=== PATIENT | female | born 1975 | race Hispanic/Latino ===

== ENCOUNTER 2019-03-02 14:25 | Emergency (ER) | payer SELFPAY ==
[2019-03-02 16:05] LABS: Absolute Lymphocytes (CBC) 0.8 K/uL (0.7-4.9); Absolute Monocytes 0.3 K/uL (0.1-1.3); Absolute Neutrophil 7.9 K/uL (1.8-8.0); Basophils % 0.7 % (0-1.3); Eosinophils % 1.1 % (0-4.4); Hematocrit 39.7 % (36.0-45.0); Lymphocytes % 8.7 % (15.3-44.8); MPV 9.3 fL (7.6-11.3); Monocytes % 3.1 % (3.3-12.3)
[2019-03-02 16:14] LABS: Urine Blood 1+ (NEG); Urine Glucose NEGATIVE (NEG); Urine Protein 1+ (NEG)
[2019-03-02] MEDS ORDERED: NA CHLORIDE 0.9% 1,000 ML ONE (16:15)
[2019-03-02 16:58] LABS: ALT/SGPT 21 U/L (12-78); AST/SGOT 18 U/L (15-37); Albumin 3.4 g/dL (3.4-5.0); Alkaline Phosphatase 94 U/L (45-117); BUN Blood Urea Nitrogen 13 mg/dL (7-18); Bicarbonate 26 mmol/L (21-32); Bilirubin Direct < 0.1 mg/dL (0-0.2); Bilirubin Total 0.4 mg/dL (0.2-1.0); Glucose Level 92 mg/dL (74-106); Lipase 60 U/L (73-393); Potassium 4.1 mmol/L (3.5-5.1); Protein, Total 8.5 g/dL (6.4-8.2); Sodium Level 141 mmol/L (136-145); Troponin (Emerg Dept Use Only) < 0.02 ng/mL (0.0-0.045)
[2019-03-02] MEDS ORDERED: KETOROLAC 30 MG/ML INJ ONE (17:10)
--- NOTE | 2019-03-02 18:43 | RAD REPORT ---
EXAM DESCRIPTION: CT - Abdomen Pelvis W Contrast - 03/02/2019 6:24 pm CLINICAL HISTORY: Abdominal pain. Right upper quadrant pain COMPARISON: 2016 TECHNIQUE: Computed axial tomography of the abdomen and pelvis was obtained. 100 cc Isovue-300 is ad ministered intravenously. Oral contrast was given. All CT scans are performed using dose optimization technique as appropriate and may include automated exposure control or mA/KV adjustment according to patient size. FINDINGS: The liver, spleen, pancreas, adrenals and kidneys appear unremarkable. The appendix is normal caliber. There is no evidence of diverticulitis Small umbilical hernia IMPRESSION: No acute abnormality displayed
--- NOTE | 2019-03-02 18:44 | RAD REPORT ---
EXAM DESCRIPTION: Kimberly Colunga (2 Views)03/02/2019 4:13 pm CLINICAL HISTORY: sob COMPARISON: 2009 FINDINGS: The lungs appear clear of acute infiltrate. The heart is normal size IMPRESSION: No acute abnormalities displayed
--- NOTE | 2019-03-02 19:08 | ER ---
Nurse's Notes [facility] Name: Nichole Martinez Age: 43 yrs Sex: Female : 1975 Arrival Date: 03/02/2019 Time: 14:29 Bed 27 Private MD: Diagnosis: Unspecified abdominal pain Presentation: 03/02 14:59 Presenting complaint: Patient states: SOB, dizzy, general weakness, RUQ pain that began aa5 yesterday. Transition of care: patient was not received from another setting of care. Onset of symptoms was February 2019. Risk Assessment: Do you want to hurt yourself or someone else? Patient reports no desire to harm self or others. Initial Sepsis Screen: Does the patient meet any 2 criteria? No. Patient's initial sepsis screen is negative. Does the patient have a suspected source of infection? No. Patient's initial sepsis screen is negative. Care prior to arrival: None. 14:59 Method Of Arrival: Ambulatory aa5 14:59 Acuity: CECELIA 3 aa5 Triage Assessment: 16:12 General: Appears in no apparent distress. comfortable, Behavior is calm, cooperative. rv Respiratory: Reports shortness of breath Onset: The symptoms/episode began/occurred gradually, the patient has mild shortness of breath. 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 - Social history:: Smoking status: Patient/guardian denies using tobacco. - Ebola Screening: : No symptoms or risks identified at this time. Screenin:12 Abuse screen: Denies threats or abuse. Denies injuries from another. Nutritional rv screening: No deficits noted. Tuberculosis screening: No symptoms or risk factors identified. Fall Risk None identified. Assessment: 16:11 General: Appears in no apparent distress. comfortable, Behavior is calm, cooperative. rv Pain: Complains of pain in abdomen. Neuro: Level of Consciousness is awake, alert, obeys commands, Oriented to person, place, time, situation. Cardiovascular: Patient's skin is warm and dry. Rhythm is regular. Respiratory: Airway is patent Respiratory effort is even, Breath sounds are clear bilaterally. GI: No signs and/or symptoms were reported involving the gastrointestinal system. : No signs and/or symptoms were reported regarding the genitourinary system. EENT: No signs and/or symptoms were reported regarding the EENT system. Derm: Skin is intact. Musculoskeletal: No signs and/or symptoms reported regarding the musculoskeletal system. 16:18 Reassessment: patient drink the oral contrast at 1615. rv 19:00 Reassessment: Patient appears in no apparent distress at this time. Patient and/or rv family updated on plan of care and expected duration. Pain level reassessed. Patient is alert, oriented x 3, equal unlabored respirations, skin warm/dry/pink. patient feels better. does not complain of any pain. conferred with SALMA Mccormick regarding plan of care. awaiting disposition. Patient denies pain at this time. Patient states feeling better. Patient states symptoms have improved. Vital Signs: 15:02 BP 137 / 83; Pulse 90; Resp 18 S; Temp 98.4(O); Pulse Ox 98% on R/A; Weight 136.08 kg aa5 (R); Height 5 ft. 4 in. (162.56 cm) (R); Pain 8/10; 16:19 BP 134 / 81; Pulse 91; Resp 16; Pulse Ox 100% ; rv 17:00 BP 134 / 99; Pulse 91; Resp 17; Temp 98; Pulse Ox 98% ; rv 18:00 BP 129 / 83; Pulse 75; Resp 17; Pulse Ox 97% ; rv 19:00 BP 138 / 95; Pulse 74; Resp 15; Pulse Ox 99% ; rv 15:02 Body Mass Index 51.49 (136.08 kg, 162.56 cm) aa5 ED Course: 14:29 Patient arrived in ED. mr 15:02 Triage completed. aa5 15:02 Arm band placed on. aa5 15:43 Jace Oswald NP is PHCP. pm1 15:43 Branden Wagoner MD is Attending Physician. pm1 15:57 Inserted saline lock: 20 gauge in right antecubital area, using aseptic technique. rv Blood collected. 16:10 Krunal Fernandez RN is Primary Nurse. rv 16:12 Patient has correct armband on for positive identification. Bed in low position. Call rv light in reach. Side rails up X 1. Pulse ox on. NIBP on. 16:17 Chest Pa And Lat (2 Views) XRAY In Process Unspecified. EDMS 18:[address] via wheelchair. tn 18:25 CT Abd/Pelvis - PO and IV Contrast In Process Unspecified. EDMS 19:19 No provider procedures requiring assistance completed. IV discontinued, intact, rv bleeding controlled, No redness/swelling at site. Pressure dressing applied. Administered Medications: 16:18 Drug: NS 0.9% 1000 ml Route: IV; Rate: 1000 ml; Site: right antecubital; rv 17:04 Follow up: IV Status: Completed infusion rv 19:00 Follow up: IV Intake: 1000ml rv 17:00 Drug: TORadol 30 mg Route: IVP; Site: right antecubital; rv 19:00 Follow up: Response: Marked relief of symptoms; Pain is decreased rv Intake: 19:00 IV: 1000ml; Total: 1000ml. rv Outcome: 19:09 Discharge ordered by MD. pm1 19:19 Discharged to home ambulatory. rv 19:19 Condition: improved 19:19 Discharge instructions given to patient, Instructed on discharge instructions, follow up and referral plans. medication usage, Demonstrated understanding of instructions, follow-up care, medications, Prescriptions given X 1. 19:23 Patient left the ED. rv Signatures: Dispatcher [employer] EDUT aZki Denisha PaniaguaRosalva RN RN aa5 Jace Oswald, SHAG TRUCK DRIVER SHAG TRUCK DRIVER pm1 Tushar Lorenzo Ronaldo, RN RN rv Corrections: (The following items were deleted from the chart) 15:03 15:02 BP 137 / 83; Pulse 90bpm; Resp 18bpm; Spontaneous; Pulse Ox 98% RA; Temp 98.4F aa5 Oral; aa5
--- NOTE | 2019-03-02 19:09 | EDPHYS ---
Physician Documentation [facility] Name: Nichole Martinez Age: 43 yrs Sex: Female : 1975 Arrival Date: 03/02/2019 Time: 14:29 Bed 27 Private MD: ED Physician Branden Wagoner HPI: 03/02 15:58 This 43 yrs old Female presents to ER via Ambulatory with complaints of pm1 Shortness Of Breath, Abdominal Pain, Back Pain. 15:58 The patient presents with abdominal pain in the right upper quadrant. Onset: The pm1 symptoms/episode began/occurred yesterday. The symptoms radiate to the right flank. Associated signs and symptoms: Pertinent positives: diarrhea, nausea, shortness of breath, Pertinent negatives: chest pain, constipation, dysuria, fever, vomiting. The symptoms are described as sharp. Modifying factors: The symptoms are alleviated by nothing, the symptoms are aggravated by nothing. Severity of pain: in the emergency department the pain is actually worse. The patient has not experienced similar symptoms in the past. The patient has not recently seen a physician. 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 - Social history:: Smoking status: Patient/guardian denies using tobacco. - Ebola Screening: : No symptoms or risks identified at this time. ROS: 15:58 Constitutional: Negative for fever, chills, and weight loss, Eyes: Negative for injury, pm1 pain, redness, and discharge, ENT: Negative for injury, pain, and discharge, Neck: Negative for injury, pain, and swelling, Cardiovascular: Negative for chest pain, palpitations, and edema, Respiratory: Negative for shortness of breath, cough, wheezing, and pleuritic chest pain. 15:58 Back: Negative for injury and pain, : Negative for injury, bleeding, discharge, and swelling, MS/Extremity: Negative for injury and deformity, Skin: Negative for injury, rash, and discoloration, Neuro: Negative for headache, weakness, numbness, tingling, and seizure. 15:58 Abdomen/GI: Positive for abdominal pain, nausea, diarrhea, of the right upper quadrant, Negative for vomiting, constipation. Exam: 15:58 Constitutional: This is a well developed, well nourished patient who is awake, alert, pm1 and in no acute distress. Head/Face: Normocephalic, atraumatic. Eyes: Pupils equal round and reactive to light, extra-ocular motions intact. Lids and lashes normal. Conjunctiva and sclera are non-icteric and not injected. Cornea within normal limits. Periorbital areas with no swelling, redness, or edema. ENT: Nares patent. No nasal discharge, no septal abnormalities noted. Tympanic membranes are normal and external auditory canals are clear. Oropharynx with no redness, swelling, or masses, exudates, or evidence of obstruction, uvula midline. Mucous membranes moist. Neck: Trachea midline, no thyromegaly or masses palpated, and no cervical lymphadenopathy. Supple, full range of motion without nuchal rigidity, or vertebral point tenderness. No Meningismus. Chest/axilla: Normal chest wall appearance and motion. Nontender with no deformity. No lesions are appreciated. Cardiovascular: Regular rate and rhythm with a normal S1 and S2. No gallops, murmurs, or rubs. Normal PMI, no JVD. No pulse deficits. Respiratory: Lungs have equal breath sounds bilaterally, clear to auscultation and percussion. No rales, rhonchi or wheezes noted. No increased work of breathing, no retractions or nasal flaring. 15:58 Back: No spinal tenderness. No costovertebral tenderness. Full range of motion. Skin: Warm, dry with normal turgor. Normal color with no rashes, no lesions, and no evidence of cellulitis. MS/ Extremity: Pulses equal, no cyanosis. Neurovascular intact. Full, normal range of motion. 15:58 Abdomen/GI: Inspection: obese Bowel sounds: normal, Palpation: soft, in all quadrants, mild abdominal tenderness, in the right upper quadrant, mass, is not appreciated, rebound tenderness, is not appreciated. 15:58 Neuro: Orientation: is normal, Motor: is normal, moves all fours. Vital Signs: 15:02 BP 137 / 83; Pulse 90; Resp 18 S; Temp 98.4(O); Pulse Ox 98% on R/A; Weight 136.08 kg aa5 (R); Height 5 ft. 4 in. (162.56 cm) (R); Pain 8/10; 16:19 BP 134 / 81; Pulse 91; Resp 16; Pulse Ox 100% ; rv 17:00 BP 134 / 99; Pulse 91; Resp 17; Temp 98; Pulse Ox 98% ; rv 18:00 BP 129 / 83; Pulse 75; Resp 17; Pulse Ox 97% ; rv 19:00 BP 138 / 95; Pulse 74; Resp 15; Pulse Ox 99% ; rv 15:02 Body Mass Index 51.49 (136.08 kg, 162.56 cm) aa5 MDM: 15:43 Patient medically screened. pm1 16:00 Data reviewed: vital signs. Data interpreted: Pulse oximetry: on room air is 98 %. pm1 Interpretation: normal. 19:09 Counseling: I had a detailed discussion with the patient and/or guardian regarding: the pm1 historical points, exam findings, and any diagnostic results supporting the discharge/admit diagnosis, lab results, radiology results, the need for outpatient follow up, to return to the emergency department if symptoms worsen or persist or if there are any questions or concerns that arise at home. 03/02 15:50 Order name: Basic Metabolic Panel; Complete Time: 17:19 pm1 03/02 15:50 Order name: CBC with Diff pm1 03/02 15:50 Order name: Creatinine for Radiology; Complete Time: 17:19 pm1 03/02 15:50 Order name: Hepatic Function; Complete Time: 17:19 pm03/02 15:50 Order name: Lipase; Complete Time: 17:19 pm03/02 15:50 Order name: Troponin (emerg Dept Use Only); Complete Time: 17:19 pm03/02 15:50 Order name: IV Saline Lock; Complete Time: 16:09 pm03/02 15:50 Order name: Labs collected and sent; Complete Time: 16:09 pm03/02 15:50 Order name: CT Abd/Pelvis - PO and IV Contrast; Complete Time: 19:08 pm03/02 15:50 Order name: Chest Pa And Lat (2 Views) XRAY; Complete Time: 19:08 pm03/02 16:05 Order name: Urine Dipstick--Ancillary (enter results); Complete Time: 16:16 eb 03/02 16:05 Order name: Urine --Ancillary (enter results); Complete Time: 16:16 eb 03/02 15:50 Order name: Urine Dipstick-Ancillary (obtain specimen); Complete Time: 16:03 pm1 03/02 15:50 Order name: Urine Test (obtain specimen); Complete Time: 16:03 pm1 Administered Medications: 16:18 Drug: NS 0.9% 1000 ml Route: IV; Rate: 1000 ml; Site: right antecubital; rv 17:04 Follow up: IV Status: Completed infusion rv 19:00 Follow up: IV Intake: 1000ml rv 17:00 Drug: TORadol 30 mg Route: IVP; Site: right antecubital; rv 19:00 Follow up: Response: Marked relief of symptoms; Pain is decreased rv Disposition: 03/03 07:29 Co-signature as Attending Physician, Branden Wagoner MD. rn Disposition: 03/02/19 19:09 Discharged to Home. Impression: Unspecified abdominal pain. - Condition is Stable. - Discharge Instructions: Abdominal Pain, Adult. - Prescriptions for Bentyl 20 mg Oral Tablet - take 1 tablet by ORAL route every 6 hours As needed; 20 tablet. - Medication Reconciliation Form, Thank You Letter, Antibiotic Education, Prescription Opioid Use form. - Follow up: Emergency Department; When: As needed; Reason: Worsening of condition. Follow up: Private Physician; When: 2 - 3 days; Reason: Recheck today's complaints, Continuance of care, Re-evaluation by your physician. - Problem is new. - Symptoms have improved. Signatures: Dispatcher [employer] EDMS Branden Wagoner MD MD rn Calderon, Audri RN RN aa5 Jace Oswald NP GERIATRIC CASE MANAGER pm1 Krunal Fernandez RN RN rv Corrections: (The following items were deleted from the chart) 03/02 19:23 19:09 03/02/2019 19:09 Discharged to Home. Impression: Unspecified abdominal pain. rv Condition is Stable. Forms are Medication Reconciliation Form, Thank You Letter, Antibiotic Education, Prescription Opioid Use. Follow up: Emergency Department; When: As needed; Reason: Worsening of condition. Follow up: Private Physician; When: 2 - 3 days; Reason: Recheck today's complaints, Continuance of care, Re-evaluation by your physician. Problem is new. Symptoms have improved. pm1
[2019-03-02 19:44] LABS: Blood Morphology Comment NOT SEEN (NOT SEEN); Platelet Estimate ADEQ; Urine White Blood Cell Casts OK
== END 2019-03-02 19:23 | disposition home or self-care (01) ==
LOC: ER 14:25
DX: R10.11 Right upper quadrant pain (principal)
CPT/HCPCS: 36415; 71046; 74177; 80048; 80076; 81003; 81025; 83690; 84484; 85025; 96361; 96374; 99284; J7030; Q9967

== ENCOUNTER 2020-04-13 17:22 | Emergency (ER) | payer SELFPAY ==
[2020-04-13] MEDS ORDERED: BENZONATATE 100 MG CAP PO ONE (18:19)
[2020-04-13] MEDS ORDERED: ACETAMINOPHEN 500 MG TAB ONE (18:19)
[2020-04-13 18:44] LABS: Urine Bacteria LOADED /HPF (<20); Urine RBC 20-50 /HPF (NONE SEEN)
[2020-04-13 18:45] LABS: Urine Culture Reflex Order REFLEXED
[2020-04-13 18:47] LABS: Urine Blood 2+ (NEG); Urine Glucose NEGATIVE (NEG); Urine Protein 1+ (NEG); Urine Specific Gravity 1.015 (1.005-1.030); Urine pH 6.5 (5.0-7.0)
--- NOTE | 2020-04-13 20:00 | RAD REPORT ---
EXAM DESCRIPTION: RAD - Chest Single View - 04/13/2020 7:49 pm CLINICAL HISTORY: Cough;Fever Chest pain. COMPARISON: <Comparisons> FINDINGS: Portable technique limits examination quality. Moderate bilateral pulmonary opacities are noted most compatible interstitial for viral pneumonitis. The heart is upper limit of normal in size. No displaced fractures.
--- NOTE | 2020-04-13 20:49 | EDPHYS ---
Physician Documentation [facility] Name: Nichole Martinez Age: 45 yrs Sex: Female : 1975 Arrival Date: 04/13/2020 Time: 17:32 Bed 7 Private MD: ED Physician Neal Lindsay HPI: 04/13 18:00 This 45 yrs old Female presents to ER via Ambulatory with complaints of cp Non-Productive Cough. 18:00 The patient or guardian reports cough, with no sputum. Onset: The symptoms/episode cp began/occurred 1 week(s) ago. Associated signs and symptoms: Pertinent positives: fever, Pertinent negatives: chest pain, diarrhea, vomiting. 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 - Social history:: Smoking status: Patient denies any tobacco usage or history of. ROS: 18:03 Constitutional: Positive for fever, Negative for body aches, poor PO intake. cp 18:03 Neck: Negative for pain with movement, pain at rest, stiffness. 18:03 Cardiovascular: Negative for chest pain, edema, palpitations. 18:03 Respiratory: Positive for cough, with no reported sputum, Negative for shortness of breath, wheezing. 18:03 Abdomen/GI: Negative for abdominal pain, nausea, vomiting, and diarrhea. 18:03 Back: Negative for radiated pain. 18:03 : Negative for urinary symptoms. 18:03 Skin: Negative for rash. 18:03 Neuro: Negative for altered mental status, headache, weakness. 18:03 All other systems are negative. Exam: 18:10 Constitutional: The patient appears in no acute distress, alert, awake, cp non-diaphoretic, non-toxic, well developed, well nourished, obese. 18:10 Head/Face: Normocephalic, atraumatic. cp 18:10 Eyes: Periorbital structures: appear normal, Conjunctiva: normal, no exudate, no injection, Sclera: no appreciated abnormality, Lids and lashes: appear normal, bilaterally. 18:10 ENT: External ear(s): are unremarkable, Ear canal(s): are normal, clear, TM's: dullness, bilaterally, Nose: is normal, Mouth: Lips: moist, Oral mucosa: moist, Posterior pharynx: Airway: no evidence of obstruction, patent, Tonsils: no enlargement, no exudate, swelling, is not appreciated, erythema, that is mild, exudate, is not appreciated. 18:10 Neck: ROM/movement: is normal, is supple, no meningismus, no nuchal rigidity, Lymph nodes: no appreciated lymphadenopathy. 18:10 Chest/axilla: Inspection: normal, Palpation: is normal, no crepitus, no tenderness. 18:10 Cardiovascular: Rate: tachycardic, Rhythm: regular, Edema: is not appreciated, JVD: is not appreciated. 18:10 Respiratory: the patient does not display signs of respiratory distress, Respirations: labored breathing, is not present, intercostal retractions, are absent, Breath sounds: decreased breath sounds, are not appreciated, stridor, is not appreciated, + upper airway congestion. wheezing: is not appreciated. 18:10 Abdomen/GI: Exam negative for discomfort, distension, guarding, Inspection: abdomen appears normal. 18:10 Back: pain, is absent, ROM is normal. Vital Signs: 17:39 Pulse 103; Resp 20; Temp 100.4(TE); Pulse Ox 94% on R/A; Weight 158.76 kg; Height 5 ft. ss 4 in. (162.56 cm); 17:43 BP 123 / 68; ph 18:27 BP 106 / 62; Pulse 96; Resp 16; Pulse Ox 96% ; sv 20:00 BP 111 / 74; Pulse 82; Resp 18; Pulse Ox 95% ; wh 21:00 BP 125 / 77; Pulse 84; Resp 18; Temp 99.2; Pulse Ox 95% on R/A; wh 17:39 Body Mass Index 60.08 (158.76 kg, 162.56 cm) ss MDM: 17:47 Patient medically screened. cp 18:15 Differential Diagnosis: Bronchitis Influenza Upper Respiratory Infection Sinusitis cp Otitis Media Viral Syndrome Pneumonia. 20:45 ED course: VSS. Patient appears non-toxic and no signs of respiratory distress noted. cp Will discharge home with oral antibiotics. 20:47 Data reviewed: vital signs, nurses notes, lab test result(s), radiologic studies, plain cp films. 20:47 Counseling: I had a detailed discussion with the patient and/or guardian regarding: the cp historical points, exam findings, and any diagnostic results supporting the discharge/admit diagnosis, lab results, radiology results, the need for outpatient follow up, a family practitioner, to return to the emergency department if symptoms worsen or persist or if there are any questions or concerns that arise at home. Response to treatment: the patient's symptoms have markedly improved after treatment, and as a result, I will discharge patient. ED course: VSS. Patient appears non-toxic and no signs of respiratory distress observed. Will discharge to home for continued monitoring. 04/13 18:01 Order name: COVID-19 04/13 18:01 Order name: Flu; Complete Time: 20:04 04/13 18:01 Order name: Strep; Complete Time: 20:04 04/13 18:17 Order name: Urine Microscopic Only; Complete Time: 19:06 sv 04/13 19:06 Interpretation: Normal except: UWBC 10-20; URBC 20-50; UBACT LOADED. 04/13 18:17 Order name: Urine Dipstick--Ancillary (enter results); Complete Time: 19:06 dc 04/13 19:06 Interpretation: Normal except: UBLD 2+; UPROT 1+; U NIT POSITIVE; UESTR 1+. 04/13 18:46 Order name: Urine Culture [facility] 04/13 18:01 Order name: CXR XRAY; Complete Time: 20:04 04/13 18:01 Order name: Document PUI#; Complete Time: 18:06 04/13 18:01 Order name: Droplet/Contact Precautions; Complete Time: 18:06 04/13 20:01 Order name: Throat Culture [facility] 04/13 18:01 Order name: Labs collected and sent; Complete Time: 18:06 04/13 18:01 Order name: Notify Health Dept [phone]/ ; Complete Time: 18:06 04/13 18:01 Order name: O2 Per Protocol; Complete Time: 18:06 04/13 18:01 Order name: Urine Dipstick-Ancillary (obtain specimen); Complete Time: 18:17 04/13 18:01 Order name: Urine Test (obtain specimen); Complete Time: 18:17 cp Administered Medications: 18:18 Drug: Tessalon Perle 200 mg Route: PO; ca1 21:11 Follow up: Response: No adverse reaction; Marked relief of symptoms 18:19 Drug: Tylenol 1000 mg Route: PO; ca1 21:11 Follow up: Response: No adverse reaction; Temperature is decreased 21:15 Drug: Rocephin (cefTRIAXone) 1 grams Route: IM; Site: right gluteus; 21:15 Drug: Zithromax 500 mg Route: PO; Disposition: 21:00 Chart complete. 04/14 08:14 Co-signature as Attending Physician, Neal Lindsay MD I agree with the assessment and maddi plan of care. Disposition: 04/13/20 20:48 Discharged to Home. Impression: Pneumonia due to other specified bacteria, Urinary tract infection, site not specified. - Condition is Stable. - Discharge Instructions: Community-Acquired Pneumonia, Adult, Urinary Tract Infection, Adult. - Prescriptions for Augmentin 875- 125 mg Oral Tablet - take 1 tablet by ORAL route every 12 hours for 10 days; 20 tablet. Zithromax Z- Gio 250 mg Oral Tablet - take 1 tablet by ORAL route as directed for 5 days Day 1 - take two (2) tablets one time. Day 2, 3, 4 , 5 take one (1) tablet once daily.; 6 tablet. Albuterol Sulfate 90 mcg/actuation - inhale 1-2 puff by INHALATION route every 4-6 hours; 1 Inhaler. Tessalon Perles 100 mg Oral Capsule - take 2 capsule by ORAL route every 8 hours As needed; 20 capsule. - Medication Reconciliation Form, Thank You Letter, Antibiotic Education, Prescription Opioid Use form. - Follow up: Private Physician; When: 2 - 3 days; Reason: Recheck today's complaints. - Problem is new. - Symptoms have improved. Signatures: Dispatcher [employer] Neal Plummer MD MD cha Hall, Patricia, RN RN Neal Carbone PA PA Alfonzo Sal Keyanna, Supriya RN RN ca1 Corrections: (The following items were deleted from the chart) 04/13 21:31 20:48 04/13/2020 20:48 Discharged to Home. Impression: Pneumonia due to other specified wh bacteria; Urinary tract infection, site not specified. Condition is Stable. Forms are Medication Reconciliation Form, Thank You Letter, Antibiotic Education, Prescription Opioid Use. Follow up: Private Physician; When: 2 - 3 days; Reason: Recheck today's complaints. Problem is new. Symptoms have improved. cp
--- NOTE | 2020-04-13 20:49 | ER ---
Nurse's Notes [facility] Name: Nichole Martinez Age: 45 yrs Sex: Female : 1975 Arrival Date: 04/13/2020 Time: 17:32 Bed 7 Private MD: Diagnosis: Pneumonia due to other specified bacteria;Urinary tract infection, site not specified Presentation: 04/13 17:39 Chief complaint: Patient states: Cough x 1 week, chills, fever, mild SOB, decreased ph appetite, denies N/V/D. Coronavirus screen: Patient reports a cough. Patient reports shortness of breath or difficulty breathing. Patient reports a measured and/or subjective temperature greater than 100.4F. Patient denies travel on a cruise ship or to a country the [facility] currently lists as an affected area. Patient denies contact with known and/or suspected case of COVID-19. Patient instructed to continue to wear a mask when interacting with others. Patient moved to private room, placed in contact and droplet isolation with eye protection until further assessment. Ebola Screen: No symptoms or risks identified at this time. Initial Sepsis Screen: Does the patient meet any 2 criteria? No. Patient's initial sepsis screen is negative. Does the patient have a suspected source of infection? No. Patient's initial sepsis screen is negative. Risk Assessment: Do you want to hurt yourself or someone else? Patient reports no desire to harm self or others. Onset of symptoms was April 13, 2020. 17:39 Method Of Arrival: Ambulatory ph 17:39 Acuity: CECELIA 4 ph RIPSAWYER: 17:42 LMP 03/31/2020 ph Historical: - Allergies: 17:42 No Known Allergies; ph - Home Meds: 17:42 None [Active]; ph - PMHx: 17:42 None; ph - PSHx: 17:42 ; ph - Immunization history:: Adult Immunizations unknown. - Social history:: Smoking status: Patient denies any tobacco usage or history of. Screenin:49 Abuse screen: Denies threats or abuse. Denies injuries from another. Nutritional sv screening: No deficits noted. Tuberculosis screening: No symptoms or risk factors identified. Fall Risk None identified. Assessment: 18:15 General: Appears in no apparent distress. comfortable, Behavior is calm, cooperative, ca1 appropriate for age, Reports fever for 0-12 hours. Pain: Denies pain. Neuro: Level of Consciousness is awake, alert, obeys commands, Oriented to person, place, time, situation. Cardiovascular: Heart tones S1 S2 present Capillary refill < 3 seconds Patient's skin is warm and dry. Respiratory: Reports cough that is non-productive, since a week ago Airway is patent Respiratory effort is even, unlabored, Respiratory pattern is regular, symmetrical, Breath sounds are clear bilaterally. GI: Abdomen is distended, non-distended, Bowel sounds present X 4 quads. Abd is soft and non tender X 4 quads. : Urine is cloudy. EENT: No signs and/or symptoms were reported regarding the EENT system. Derm: Skin is intact, is healthy with good turgor, Skin is pink, warm \T\ dry. Musculoskeletal: Circulation, motion, and sensation intact. Capillary refill < 3 seconds. 19:15 Reassessment: Patient appears in no apparent distress at this time. Patient and/or family updated on plan of care and expected duration. Pain level reassessed. Patient is alert, oriented x 3, equal unlabored respirations, skin warm/dry/pink. 21:00 Reassessment: Patient appears in no apparent distress at this time. No changes from previously documented assessment. Patient and/or family updated on plan of care and expected duration. Pain level reassessed. Patient is alert, oriented x 3, equal unlabored respirations, skin warm/dry/pink. Vital Signs: 17:39 Pulse 103; Resp 20; Temp 100.4(TE); Pulse Ox 94% on R/A; Weight 158.76 kg; Height 5 ft. ss 4 in. (162.56 cm); 17:43 BP 123 / 68; ph 18:27 BP 106 / 62; Pulse 96; Resp 16; Pulse Ox 96% ; sv 20:00 BP 111 / 74; Pulse 82; Resp 18; Pulse Ox 95% ; wh 21:00 BP 125 / 77; Pulse 84; Resp 18; Temp 99.2; Pulse Ox 95% on R/A; wh 17:39 Body Mass Index 60.08 (158.76 kg, 162.56 cm) ED Course: 17:32 Patient arrived in ED. fj1 17:41 Triage completed. ph 17:42 Arm band placed on. ph 17:44 Neal Carbone PA is PHCP. cp 17:44 Neal Lindsay MD is Attending Physician. cp 17:47 Supriya Briceño, JESSICA is Primary Nurse. ca1 17:49 Patient has correct armband on for positive identification. Bed in low position. Call sv light in reach. Door closed. Head of bed elevated. 17:56 Nurse Practitioner and/or Physician Fund Accounting Manager to see patient. sv 18:15 Pulse ox on. NIBP on. ca1 18:15 No provider procedures requiring assistance completed. Patient did not have IV access ca1 during this emergency room visit. 19:50 CXR XRAY In Process Unspecified. EDMS Administered Medications: 18:18 Drug: Tessalon Perle 200 mg Route: PO; [facility] 21:11 Follow up: Response: No adverse reaction; Marked relief of symptoms 18:19 Drug: Tylenol 1000 mg Route: PO; [facility] 21:11 Follow up: Response: No adverse reaction; Temperature is decreased 21:15 Drug: Rocephin (cefTRIAXone) 1 grams Route: IM; Site: right gluteus; 21:15 Drug: Zithromax 500 mg Route: PO; Outcome: 20:48 Discharge ordered by MD. cp 21:20 Discharged to home ambulatory. 21:20 Condition: stable 21:20 Discharge instructions given to patient, Instructed on discharge instructions, follow up and referral plans. medication usage, POC Demonstrated understanding of instructions, follow-up care, medications, POC Prescriptions given X 4. 21:31 Patient left the ED. Addendum: 04/17/2020 06:19 Addendum: COVID-19 Result: Positive result giiven to ED physician to notify pt. s g Physician attempted to contact pt. Physician attempted to contact pt but the phone number provided was either not a working number or they were unable to leave a voice mail. 07:22 Addendum: Culture Results: Positive urine culture. No further action required. Bacteria r r5 sensitive to prescribed antibiotic. Signatures: Dispatcher [employer] EDWI Prachi Zavala RN RN sv Gay, Steven, RN RN Shellie Alvarez RN RN Terese Lamar RN RN Neal Carbone PA PA cp Habalo, Winsy Emmanuel Raza RN RN rr5 Supriya Briceño RN RN ca1 James, Frank fj1 Corrections: (The following items were deleted from the chart) 04/13 17:57 17:39 Pulse 20bpm; Resp 20bpm; Pulse Ox 94% RA; Temp 100.4F Temporal; 158.76 kg; Height ss 5 ft. 4 in.; BMI: 60.0; ph
[2020-04-13] MEDS ORDERED: WATER FOR INJ,STERILE 10 ML ONE (21:14)
[2020-04-13] MEDS ORDERED: CEFTRIAXONE 1000 MG/VIAL ONE (21:14)
[2020-04-13] MEDS ORDERED: AZITHROMYCIN 250 MG TAB ONE (21:14)
[2020-04-13 21:39] VITALS: O2SAT 95
[2020-04-13 21:40] VITALS: BP 125/77; TEMP 99.2
== END 2020-04-13 21:31 | disposition home or self-care (01) ==
LOC: ER 17:22
DX: U07.1 COVID-19 (principal); J15.8 Pneumonia due to other specified bacteria; N39.0 Urinary tract infection, site not specified
CPT/HCPCS: 71045; 81003; 81015; 87070; 87077; 87081; 87086; 87088; 87186; 87804; 96372; 99284; U0001

== ENCOUNTER 2021-08-12 11:50 | Emergency (ER) | payer SELFPAY ==
[2021-08-12 12:33] LABS: Absolute Lymphocytes (CBC) 1.5 K/uL (0.7-4.9); Basophils % 0.8 % (0-1.3); Hematocrit 42.1 % (36.0-45.0); Lymphocytes % 19.8 % (15.3-44.8); RBC Red Blood Cell Count 4.95 M/uL (3.86-4.86)
[2021-08-12 12:51] LABS: ALT/SGPT 28 U/L (12-78); AST/SGOT 13 U/L (15-37); Albumin 3.5 g/dL (3.4-5.0); Alkaline Phosphatase 97 U/L (45-117); BUN Blood Urea Nitrogen 12 mg/dL (7-18); Bicarbonate 28 mmol/L (21-32); Bilirubin Direct 0.1 mg/dL (0-0.2); Bilirubin Total 0.4 mg/dL (0.2-1.0); Glucose Level 89 mg/dL (74-106); NT PRO-BNP 16 pg/mL (<125); Potassium 3.8 mmol/L (3.5-5.1); Protein, Total 8.5 g/dL (6.4-8.2); Sodium Level 142 mmol/L (136-145); Troponin (Emerg Dept Use Only) < 0.02 ng/mL (0.0-0.045)
--- NOTE | 2021-08-12 12:54 | RAD REPORT ---
EXAM DESCRIPTION: RAD - Chest Single View - 08/12/2021 12:35 pm CLINICAL HISTORY: CHEST PAIN COMPARISON: Chest Single View dated 04/13/2020; Chest Pa And Lat (2 Views) dated 03/02/2019; CHEST SING LE VIEW dated 11/19/2009 FINDINGS: Lines: None. Lungs: No evidence of edema or pneumonia. Pleural: No significant pleural effusions or pneumothorax. Cardiac: Cardiomegaly. Bones: No acute fractures. Other: IMPRESSION: No acute cardiopulmonary disease.
--- NOTE | 2021-08-12 13:45 | RAD REPORT ---
EXAM DESCRIPTION: CT - Chest For Pe Angio - 08/12/2021 1:30 pm CLINICAL HISTORY: CHEST PAIN COMPARISON: Abdomen Pelvis W Contrast dated 03/02/2019 TECHNIQUE: Dynamically enhanced 3 mm thick images of the chest were obtained during administration o f approximately 150mL Isovue 370 IV contrast. Coronal and oblique MIP reconstruction images were gene rated and reviewed. Exam utilizes a protocol to evaluate the pulmonary arterial tree. All CT scans are performed using dose optimization technique as appropriate and may include automated exposure control or mA/KV adjustment according to patient size. FINDINGS: No pulmonary emboli are identified. The aorta as imaged shows no acute or suspicious finding. No pericardial thickening or effusion. No large mass or consolidated parenchyma seen. A 10 millimeter rounded focal opacity in the medial in ferior right lung field (image 54/80) is present. This is new from 2019 CT imaging. No other nodule i dentified. No pleural effusion or pleural thickening. No mediastinal or hilar suspicious masses. No chest wall masses or abnormal axillary lymphadenopathy. IMPRESSION: No pulmonary emboli identified. Small 10 mm nodular focus in the medial right lung base.This may simply be small focus of atelectasis or infiltrate. Follow-up CT imaging in 3-6 month suggested to re-evaluate this finding.
--- NOTE | 2021-08-12 13:52 | ER ---
Nurse's Notes [facility] Name: Nichole Martinez Age: 46 yrs Sex: Female : 1975 Arrival Date: 08/12/2021 Time: 11:52 Bed 18 Private MD: Diagnosis: Chest pain, unspecified Presentation: 08/12 12:06 Chief complaint: Patient states: I am having chest pain that started on Tuesday when ld1 my daughter called me and told me that she was in [facility]. The pain has not gone away since I received the phone call. Coronavirus screen: At this time, the client does not indicate any symptoms associated with coronavirus-19. Ebola Screen: No symptoms or risks identified at this time. Initial Sepsis Screen: Does the patient meet any 2 criteria? No. Patient's initial sepsis screen is negative. Does the patient have a suspected source of infection? No. Patient's initial sepsis screen is negative. Risk Assessment: Do you want to hurt yourself or someone else? Patient reports no desire to harm self or others. Onset of symptoms was August 12, 2021. 12:06 Method Of Arrival: Ambulatory ld1 12:06 Acuity: CECELIA 3 ld1 Triage Assessment: 12:07 General: Appears in no apparent distress. comfortable, Behavior is calm, cooperative, ld1 appropriate for age. Pain: Complains of pain in chest Pain does not radiate. Pain currently is 6 out of 10 on a pain scale. at worst was 9 out of 10 on a pain scale. Quality of pain is described as stabbing, Pain began 2-3 days ago. Is continuous. EENT: No signs and/or symptoms were reported regarding the EENT system. Neuro: Level of Consciousness is awake, alert, obeys commands, Oriented to person, place, time, situation. Cardiovascular: Reports chest pain, Capillary refill < 3 seconds Patient's skin is warm and dry. Rhythm is. Respiratory: Airway is patent Respiratory effort is even, unlabored, Respiratory pattern is regular, symmetrical. GI: Abdomen is round non-distended, obese. : No signs and/or symptoms were reported regarding the genitourinary system. Derm: No signs and/or symptoms reported regarding the dermatologic system. Musculoskeletal: No signs and/or symptoms reported regarding the musculoskeletal system. ASSESSMENT CLINICIAN: 12:07 LMP 08/12/2021 ld1 Historical: - Allergies: 12:07 No Known Allergies; ld1 - Home Meds: 12:07 None [Active]; ld1 - PMHx: 12:07 None; ld1 - PSHx: 12:07 None; ld1 - Immunization history:: Adult Immunizations up to date, Client reports having NOT received the Covid vaccine. - Social history:: Smoking status: Patient denies any tobacco usage or history of. Patient/guardian denies using alcohol. - Family history:: not pertinent. - Hospitalizations: : No recent hospitalization is reported. Screenin:28 Abuse screen: Denies threats or abuse. Denies injuries from another. Nutritional sl2 screening: No deficits noted. Tuberculosis screening: No symptoms or risk factors identified. Fall Risk None identified. No fall in past 12 months (0 pts). No secondary diagnosis (0 pts). IV access (20 points). Ambulatory Aid- None/Bed Rest/Nurse Assist (0 pts). Gait- Normal/Bed Rest/Wheelchair (0 pts) Mental Status- Oriented to own ability (0 pts). Total Agustin Fall Scale indicates No Risk (0-24 pts). Assessment: 12:12 General: Appears in no apparent distress. well groomed, well developed, Behavior is sl2 calm, cooperative, appropriate for age, Reports chest pain. Neuro: No deficits noted. Level of Consciousness is awake, alert, obeys commands, Oriented to person, place, time, situation, Appropriate for age Sugar Chipper Machine Operator are equal bilaterally Moves all extremities. Full function Gait is steady, Speech is normal. Respiratory: No deficits noted. Airway is patent Trachea midline Respiratory effort is even, unlabored, Respiratory pattern is regular, symmetrical. GI: No deficits noted. No signs and/or symptoms were reported involving the gastrointestinal system. : No deficits noted. No signs and/or symptoms were reported regarding the genitourinary system. EENT: No deficits noted. No signs and/or symptoms were reported regarding the EENT system. Derm: No deficits noted. No signs and/or symptoms reported regarding the dermatologic system. Musculoskeletal: No deficits noted. No signs and/or symptoms reported regarding the musculoskeletal system. 12:23 Reassessment: Portable CXR completed at bedside. sl2 Vital Signs: 12:00 BP 138 / 84; Pulse 73; Resp 18; Temp 98.4; Pulse Ox 100% on R/A; sl2 12:06 BP 134 / 70; Pulse 79; Resp 17; Temp 98.5(TE); Pulse Ox 100% on R/A; Weight 116.57 kg; ld1 Height 5 ft. 7 in. (170.18 cm); Pain 8/10; 12:36 BP 140 / 77; Pulse 73; Resp 16; Pulse Ox 100% on R/A; sl2 12:45 BP 134 / 76; Pulse 66; Resp 18; Pulse Ox 99% on R/A; sl2 13:15 BP 131 / 66; Pulse 66; Resp 18; Pulse Ox 99% ; sl2 12:06 Body Mass Index 40.25 (116.57 kg, 170.18 cm) ld1 ED Course: 11:52 Patient arrived in ED. am2 12:00 Branden Wagoner MD is Attending Physician. rn 12:07 Triage completed. ld1 12:07 Arm band placed on right wrist. ld1 12:11 Nuria Romero, JESSICA is Primary Nurse. sl2 12:28 Patient has correct armband on for positive identification. Placed in gown. Bed in low sl2 position. Call light in reach. Side rails up X 1. cardiac monitor on. Pulse ox on. NIBP on. Door closed. Noise minimized. Warm blanket given. 12:28 No provider procedures requiring assistance completed. Inserted saline lock: 18 gauge sl2 in left antecubital area, using aseptic technique. Blood collected. Patient maintains SpO2 saturation greater than 95% on room air. 12:35 XRAY Chest (1 view) In Process Unspecified. EDMS 13:[address] via wheelchair. sl2 13:30 CT Chest For PE Angio In Process Unspecified. EDMS 13:43 Patient moved back from CT. sl2 13:44 Awaiting radiology results. sl2 14:42 IV discontinued, intact, bleeding controlled, No redness/swelling at site. Pressure sl2 dressing applied. Administered Medications: No medications were administered Outcome: 13:51 Discharge ordered by . rn 14:41 Discharged to home ambulatory. sl2 14:41 Condition: stable 14:41 Discharge instructions given to patient, Instructed on discharge instructions, follow up and referral plans. no drinking with medication, medication usage, Demonstrated understanding of instructions, follow-up care, medications, Prescriptions given X 1. 14:42 Patient left the ED. sl2 Signatures: Dispatcher [employer] EDMS Branden Wagoner MD MD rn Moreno, Amanda am2 Dibbern, Lauren RN RN ld1 Nuria Romero RN RN sl2
--- NOTE | 2021-08-12 13:52 | EDPHYS ---
Physician Documentation [facility] Name: Nichole Martinez Age: 46 yrs Sex: Female : 1975 Arrival Date: 08/12/2021 Time: 11:52 Bed 18 Private MD: ED Physician Branden Wagoner HPI: 08/12 12:08 This 46 yrs old Female presents to ER via Ambulatory with complaints of Chest rn Pain. 12:08 The patient or guardian reports chest pain that is located primarily in the anterior rn chest wall, left. Onset: 5 day(s) ago. The pain does not radiate. Associated signs and symptoms: The patient has no apparent associated signs or symptoms, Pertinent negatives: abdominal pain, cough, diaphoresis, dizziness, headache, lower extremity swelling, near syncope, palpitations, shortness of breath, syncope, vomiting. The chest pain is described as sharp. Duration: The patient or guardian reports multiple episodes, that are intermittent, the episodes last approximately 10 minute(s). Modifying factors: The symptoms are alleviated by nothing. the symptoms are aggravated by emotionally stressful situations. Severity of pain: At its worst the pain was mild in the emergency department the pain is unchanged. The patient has experienced a previous episode. The patient has been recently seen by a physician:. Patient reports received bad news Tuesday, her family member was arrested and in snf, started to have left upper chest pain at that time. Describes it to be sharp and nonradiating. Not associated with cough or shortness of breath. No diaphoresis. States this is happened once before after 2 family members she began to have chest pain but went away in 3 days. She is now having pain for 5 days and went to see her PCP today who referred her here today for further work-up. Currently denies any chest pain. 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 - Social history:: Smoking status: Patient denies any tobacco usage or history of. Patient/guardian denies using alcohol. - Family history:: not pertinent. - Hospitalizations: : No recent hospitalization is reported. ROS: 12:08 Constitutional: Negative for fever, chills, and weight loss, Eyes: Negative for injury, rn pain, redness, and discharge, Neck: Negative for injury, pain, and swelling, Cardiovascular: Negative for palpitations, and edema, Respiratory: Negative for shortness of breath, cough, wheezing, and pleuritic chest pain, Abdomen/GI: Negative for abdominal pain, nausea, vomiting, diarrhea, and constipation, Back: Negative for injury and pain, : Negative for injury, bleeding, discharge, and swelling, MS/Extremity: Negative for injury and deformity, Skin: Negative for injury, rash, and discoloration, Neuro: Negative for headache, weakness, numbness, tingling, and seizure. Exam: 12:08 Constitutional: Overweight female, no acute distress Head/Face: Normocephalic, rn atraumatic. Eyes: Periorbital areas with no swelling, redness, or edema. Cardiovascular: Regular rate and rhythm. No pulse deficits. Respiratory: No increased work of breathing, no retractions or nasal flaring. Abdomen/GI: Soft, non-tender Skin: Warm, dry MS/ Extremity: Pulses equal, no cyanosis Neuro: Awake and alert, GCS 15 12:11 ECG was reviewed by the Attending Physician. rn Vital Signs: 12:00 BP 138 / 84; Pulse 73; Resp 18; Temp 98.4; Pulse Ox 100% on R/A; sl2 12:06 BP 134 / 70; Pulse 79; Resp 17; Temp 98.5(TE); Pulse Ox 100% on R/A; Weight 116.57 kg; ld1 Height 5 ft. 7 in. (170.18 cm); Pain 8/10; 12:36 BP 140 / 77; Pulse 73; Resp 16; Pulse Ox 100% on R/A; sl2 12:45 BP 134 / 76; Pulse 66; Resp 18; Pulse Ox 99% on R/A; sl2 13:15 BP 131 / 66; Pulse 66; Resp 18; Pulse Ox 99% ; sl2 12:06 Body Mass Index 40.25 (116.57 kg, 170.18 cm) ld1 MDM: 12:00 Patient medically screened. rn 13:50 Differential diagnosis: acute myocardial infarction, acute pericarditis, anxiety, rn coronary artery disease costochondritis, esophagitis, gastritis, gastroesophageal reflux disease (GERD), pericarditis, pleurisy, pneumothorax, pulmonary embolus. Data reviewed: vital signs, nurses notes, lab test result(s), EKG, radiologic studies, CT scan, plain films, and as a result, I will discharge patient. Counseling: I had a detailed discussion with the patient and/or guardian regarding: the historical points, exam findings, and any diagnostic results supporting the discharge/admit diagnosis, lab results, radiology results, the need for outpatient follow up, to return to the emergency department if symptoms worsen or persist or if there are any questions or concerns that arise at home. Special discussion: I discussed with the patient/guardian in detail that at this point there is no indication for admission to the hospital. It is understood, however, that if the symptoms persist or worsen the patient needs to return immediately for re-evaluation. ED course: NO acute findings in blood work/EKG/chest x-ray/CT chest. Will DC home with PCP follow-up and return precautions.. 08/12 12:08 Order name: Basic Metabolic Panel; Complete Time: 12:54 rn 08/12 12:08 Order name: CBC with Diff; Complete Time: 12:50 rn 08/12 12:08 Order name: LFT's; Complete Time: 12:54 rn 08/12 12:08 Order name: NT PRO-BNP; Complete Time: 12:54 rn 08/12 12:08 Order name: PT-INR; Complete Time: 12:50 rn 08/12 12:08 Order name: Troponin (emerg Dept Use Only); Complete Time: 12:54 rn 08/12 12:08 Order name: XRAY Chest (1 view); Complete Time: 13:32 rn 08/12 12:08 Order name: EKG; Complete Time: 12:08 rn 08/12 12:08 Order name: Cardiac monitoring; Complete Time: 12:09 rn 08/12 12:08 Order name: EKG - Nurse/Tech; Complete Time: 12:09 rn 08/12 12:08 Order name: IV Saline Lock; Complete Time: 12:25 rn 08/12 12:08 Order name: D-Dimer; Complete Time: 12:50 rn 08/12 12:50 Order name: CT Chest For PE Angio; Complete Time: 13:50 rn 08/12 14:14 Order name: Urine Dipstick-Ancillary EDMT 08/12 12:08 Order name: Labs collected and sent; Complete Time: 12:26 rn 08/12 12:08 Order name: O2 Per Protocol; Complete Time: 12:09 rn 08/12 12:08 Order name: O2 Sat Monitoring; Complete Time: 12:09 rn EC:11 Rate is 67 beats/min. Rhythm is regular. QRS [place] is Normal. MT interval is normal. QRS rn interval is normal. QT interval is normal. No Q waves. T waves are Normal. No ST changes noted. Clinical impression: Normal ECG. Interpreted by me. Reviewed by me. Administered Medications: No medications were administered Disposition Summary: 08/12/21 13:51 Discharge Ordered Location: Home rn Problem: new rn Symptoms: have improved rn Condition: Stable rn Diagnosis - Chest pain, unspecified rn Followup: rn - With: Private Physician - When: As needed - Reason: Recheck today's complaints, Re-evaluation by your physician Discharge Instructions: - Discharge Summary Sheet rn - Nonspecific Chest Pain, Adult rn - Pain Without a Known Cause rn - Urinary Tract Infection, Adult rn Forms: - Medication Reconciliation Form rn - Thank You Letter rn - Antibiotic journeyman pipe welder - Prescription Opioid Use rn Prescriptions: - Cipro 500 mg Oral Tablet - take 1 tablet by ORAL route every 12 hours for 7 days; 14 tablet; Refills: 0, rn Product Selection Permitted Signatures: Dispatcher [employer] [facility] Branden Wagoner MD MD rn Dibbern, Lauren, RN RN ld1
[2021-08-12 14:14] LABS: Urine Blood 3+ (Negative); Urine Glucose Negative (Negative); Urine Protein Negative (Negative); Urine Specific Gravity 1.025 (1.005-1.030)
[2021-08-12 15:22] VITALS: TEMP 98.5
[2021-08-12 15:25] VITALS: O2SAT 99
[2021-08-12 15:26] VITALS: BP 131/66
== END 2021-08-12 14:42 | disposition home or self-care (01) ==
LOC: ER 11:50
DX: N39.0 Urinary tract infection, site not specified (principal); R07.9 Chest pain, unspecified
CPT/HCPCS: 36415; 71045; 71275; 80048; 80076; 81003; 83880; 84484; 85025; 85379; 85610; 93005; 99285; Q9967